=== PATIENT | female | born 1990 | race Hispanic/Latino ===

== ENCOUNTER 2019-06-21 10:48 | Emergency (ER) | payer OTHER ==
[~2019-06-21] VITALS: Ht 165.1 cm; Wt 103.0 kg
--- OUTSIDE RECORDS SUMMARY | 2019-06-21 10:50 | XMS REPORT ---
Author Author [facility] Address Unknown Phone Unavailable Care Team Providers Care [facility] Name Role Phone Unavailable Unavailable Problems This patient has no known problems. Allergies, Adverse Reactions, Alerts This patient has no known allergies or adverse reactions. Medications This patient has no known medications.
[2019-06-21] MEDS ORDERED: ONDANSETRON HCL INJ 2MG/ML 2ML 2 MG/ML VIAL IV STA (10:59)
[2019-06-21] MEDS ORDERED: DICYCLOMINE HCL 20 MG/2 ML VIAL IM ONE (11:00)
[2019-06-21 11:45] LABS: CLARITY,URINE CLEAR (CLEAR); COLOR,URINE YELLOW (YELLOW)
[2019-06-21 11:47] LABS: LEUKOCYTE ESTERASE ,URINE NEGATIVE (NEGATIVE); NITRITE,URINE NEGATIVE (NEGATIVE)
[2019-06-21 11:48] LABS: KETONES,URINE NEGATIVE (NEGATIVE); PROTEIN,URINE DIPSTICK TRACE (NEGATIVE)
[2019-06-21 11:49] LABS: BACTERIA,URINE RARE /HPF; BILIRUBIN,URINE NEGATIVE (NEGATIVE); EPITHELIAL CELLS,URINE FEW /LPF; RBC,URINE 0-5 /HPF (0-5); URINE UROBILINOGEN 0.2 mg/dL (0.2 - 1); WBC,URINE (MAN) 0-5 /HPF (0-5)
--- NOTE | 2019-06-21 12:11 | Diagnostic Imaging Report ---
EXAM: US GALLBLADDER DATE: 06/21/2019 10:59 AM INDICATION: Abdominal pain COMPARISON: None FINDINGS: The visualized pancreas appears unremarkable. The liver is mildly enlarged measuring 18.5 cm in length. The hepatic parenchyma appears diffusely increased in echogenicity which can be seen in the setting of hepatic steatosis. No focal hepatic abdomen valgus is identified. The main portal vein is patent with antegrade flow and diameter of 0.9 cm, within normal limits. The gallbladder contains multiple shadowing stones. There is no evidence for gallbladder wall thickening or pericholecystic fluid. There is no intra or extrahepatic biliary ductal dilatation. The common bile duct measures 6 mm. Sonographic Remy's sign is negative. The right kidney is normal in size measuring 10.6 cm in length with normal cortical thickness and echogenicity. There is no evidence for solid renal mass, hydronephrosis, or shadowing calculi within the right kidney. The visualized portions of the IVC and aorta are within normal limits. There is no ascites visualized. IMPRESSION: Cholelithiasis without sonographic evidence for acute cholecystitis. Sonographic findings suggestive of hepatic steatosis. Signed by: Dr. Fabio Gilliam MD on 06/21/2019 12:08 PM
--- NOTE | 2019-06-21 12:23 | Diagnostic Imaging Report ---
EXAM: US OB TRANSVAG 1ST TRI SINGLE DATE: 06/21/2019 INDICATION: well-being COMPARISON: None TECHNIQUE: Transvaginal sonographic images of the pelvis were obtained using gordillo scale and color doppler. Transvaginal imaging was medically necessary to better evaluate the fetus. G 3P2A 0 LMP 04/13/2019 FINDINGS: The uterus measures 9.3 x 5.6 x 6.4 cm. There is a ovoid intrauterine gestational sac identified with mean sac diameter of 2.74 cm corresponding to a gestational age of 7 weeks, 5 days. A pole is identified with crown-rump length of 1.8 cm, corresponding to a gestational age of 8 weeks, 2 days. A yolk sac is visualized. heart tones are present with rate of 153 bpm. Small crescentic hypoechoic area noted adjacent to the gestational sac suggestive of small volume of subchorionic hemorrhage (involving less than 20% of the gestational sac). The right ovary measures 3.5 x 2.4 x 2.7 cm. The left ovary measures 2.4 x 1.7 x 1.7 cm. A suspected corpus luteum cyst is identified within the right ovary measuring 1.5 x 1.3 cm. No free fluid is visualized. IMPRESSION: Single viable intrauterine gestation identified with estimated sonographic age of 8 weeks, 0 days. heart rate is 153 bpm. Estimated delivery date is 01/31/2020. Small volume of subchorionic hemorrhage visualized. Signed by: Dr. Fabio Gilliam MD on 06/21/2019 12:20 PM
[2019-06-21 12:46] LABS: BASOPHILS % 0.1 % (0.0-1.0); EOSINOPHILS % 0.1 % (0.0-6.0); HEMATOCRIT 36.1 % (34.2-44.1); HEMOGLOBIN 11.8 g/dL (12.0-16.0); LYMPHOCYTES # (AUTO) 1.8 (1.0-3.2); LYMPHOCYTES % 12.7 % (18.0-39.1); MEAN CORPUSCULAR HGB CONC 32.7 g/dL (31-35); MEAN CORPUSCULAR VOLUME 82.6 fL (81-99); MONOCYTES # (AUTO) 0.3 (0.2-0.8); MONOCYTES % 2.2 % (4.4-11.3); NEUTROPHILS # (AUTO) 12.1 (2.1-6.9); NEUTROPHILS % 84.4 % (38.7-80.0); PLATELET COUNT 507 x10e3/uL (140-360); RED BLOOD COUNT 4.37 x10e6/uL (3.6-5.1); RED CELL DISTRIBUTION WIDTH 14.5 % (11.7-14.4)
[2019-06-21 13:07] LABS: ALANINE AMINOTRANSFERASE 21 IU/L (0-55); ALBUMIN 3.8 g/dL (3.5-5.0); ALBUMIN/GLOBULIN RATIO 0.9 (0.8-2.0); ALKALINE PHOSPHATASE 62 IU/L (40-150); AMYLASE 72 U/L (25-125); ANION GAP 15.5 mmol/L (8-16); BLOOD UREA NITROGEN 11 mg/dL (7-26); BUN/CREATININE RATIO 15 (6-25); CALCIUM 9.5 mg/dL (8.4-10.2); CARBON DIOXIDE 22 mmol/L (22-29); CHLORIDE 100 mmol/L (98-107); CREATININE, SERUM 0.71 mg/dL (0.57-1.11); EST GLOMERULAR FILTRATION RATE > 60 ML/MIN (60-); GLUCOSE 99 mg/dL (74-118); LIPASE 35 U/L (8-78); POTASSIUM 3.5 mmol/L (3.5-5.1); SODIUM 134 mmol/L (136-145)
[2019-06-21 13:34] LABS: HCG,QUANTITATIVE 48847.86 mIU/mL (0-10)
[2019-06-21] MEDS ORDERED: LIDOCAINE VISC 2% SOLN 15 ML UDC PO NR (14:30)
[2019-06-21] MEDS ORDERED: MAGNESIUM/ALUMINUM/SIMETHICONE 30 ML UDC PO NR (14:30)
[2019-06-21 16:18] VITALS: BP 124/75
== END 2019-06-21 16:20 | disposition home or self-care (01) ==
LOC: ER 10:48
DX: O99.611 Diseases of the digestive system complicating pregnancy, first trimester (principal); R10.13 Epigastric pain; R11.2 Nausea with vomiting, unspecified
CPT/HCPCS: 36415; 76705; 76817; 80053; 81001; 82150; 83690; 84702; 85025; 87086; 99284; J0500; J2405